=== PATIENT | male | born 1970 | race Hispanic/Latino ===

== ENCOUNTER 2025-01-30 10:34 | Emergency (ER) | payer SELFPAY ==
[~2025-01-30] VITALS: Ht 162.6 cm; Wt 99.8 kg
--- NOTE | 2025-01-30 10:38 | ERN ---
ED Note History of Present Illness Stated Complaint: LT EYE PAIN Chief Complaint: Eye Problems Time Seen by MD: 10:35 Dictation: PATIENT IS A 54-YEAR-OLD MALE COMING IN TODAY COMPLAINTS OF LEFT RED EYE WITH GREEN-YELLOW DRAINAGE IT ONSET WAS LAST NIGHT. HE DESCRIBES IT ITCHY. HE DOES NOT WEAR CONTACT LENSES OR GLASSES. PRIMARY CARE DOCTOR. Allergies: Coded Allergies: No Known Drug Allergies (Unverified Allergy, Unknown, 01/30/25) Past Medical History RN Note Reviewed/Agreed w/PFSH: Yes Review of System Dictation CONSTITUTIONAL: NEGATIVE EXCEPT FOR HPI HEAD/FACE: NEGATIVE EXCEPT FOR HPI EENT: NEGATIVE EXCEPT FOR HPI LEFT RED EYE WITH DRAINAGE RESPIRATORY: NEGATIVE EXCEPT FOR HPI GASTROINTESTINAL/ABDOMINAL: NEGATIVE EXCEPT FOR HPI GENITOURINARY: NEGATIVE EXCEPT FOR HPI MUSCULOSKELETAL: NEGATIVE EXCEPT FOR HPI INTEGUMENTARY: NEGATIVE EXCEPT FOR HPI NEUROLOGICAL/PSYCH: NEGATIVE EXCEPT FOR HPI HEMATOLOGIC/LYMPHATIC: NEGATIVE EXCEPT FOR HPI ALL SYSTEMS NEGATIVE, EXCEPT NOTED ABOVE. 13 POINT REVIEW OF SYSTEMS ASSESSED AND ALL NEGATIVE EXCEPT FOR ABOVE. Initial Vital Sign VS Vital Signs Date Time Temp Pulse Resp B/P (MAP) Pulse Ox O2 Delivery O2 Flow Rate FiO2 01/30/25 10:36 97.5 88 18 138/96 97 Room Air 0 Physical Exam Dictation VITAL SIGNS REVIEWED GENERAL APPEARANCE: ALERT, ORIENTED X 3, NO ACUTE DISTRESS, WELL DEVELOPED, NOURISHED. HEAD AND FACE: NON-TRAUMATIC. EYES: PERRL, RIGHT CONJUNCTIVA INJECTED, EYELID NO TRAUMA, ANTERIOR CHAMBER WITH ARCUS SENILIS. EARS: PINNAS INTACT AND NO SIGNS OF TRAUMA OR ERYTHEMA EAR CANALS CLEAR AND NO DISCHARGE TM NO ERYTHEMA NOSE: NO DISCHARGE, NO BLEEDING. OROPHARYNX: MOUTH NORMAL, TONGUE PINK, PHARYNX CLEAR,NO ERYTHEMA, TONSILS NO EXUDATES, NO ABSCESSES NOTED, MUCOUS MEMBRANE MOIST NECK: SUPPLE, NON-TENDER, NO THYROMEGALY, NO MASSES, NO JVD, NO BRUITS BREAST:DEFERRED CHEST:NO TENDERNESS, NO CREPITUS, NO PARADOXICAL MOVEMENT, NO RETRACTIONS LUNGS:CLEAR, WELL-VENTILATED, SYMMETRIC, NO RALES, NO WHEEZING, NO RHONCHI, NO STRIDOR, GOOD BREATH SOUNDS BILATERALLY HEART: REGULAR RATE, REGULAR RHYTHM, NO MURMUR, NO GALLOPS VASCULAR: NO PERIPHERAL EDEMA, ABDOMEN: SOFT, POSITIVE BOWEL SOUNDS, NONDISTENDED, NO GUARDING, NONTENDER, NO REBOUND, NO MASSES NO HEPATOMEGALY, NO SPLENOMEGALY, NO WESTON'S SIGN, NO HERNIAS. RECTAL: DEFERRED GENITAL: DEFERRED NEUROLOGICAL: NORMAL SPEECH, MOTOR FUNCTION INTACT, SENSORY FUNCTION INTACT MUSCULOSKELETAL: NECK NONTENDER, FULL RANGE OF MOTION, BACK NONTENDER, FULL RANGE OF MOTION, EXTREMITIES: NONTENDER, FULL RANGE OF MOTION SKIN: COLOR PINK, DRY, NO TURGOR, NO RASH, NO LACERATIONS, NO ABRASIONS, NO CONTUSIONS. LYMPHATIC: DEFERRED Results (Laboratory/Radiology) Labs Reviewed?: Yes ED Course ED Course Orders Procedure Category Date Status Time Visual Acuity Test CPOE 01/30/25 Transmitted (Er) 10:36 Tetracaine Hcl PHA 01/30/25 Complete (Pontocaine 0.5% 11:00 Fluorescein Sodium PHA 01/30/25 Complete (Cwqlt-P-Nujpf At) 11:00 Acetaminophen 500mg PHA 01/30/25 Complete Tab (Tylenol 500mg T 11:00 Current Medications Medications (Trade) Dose Ordered Sig/Alessandro Route PRN Reason Start Time Stop Time Status Last Admin Dose Admin Acetaminophen (TYLenol 500MG TAB) 1,000 mg ONCE ONCE PO 01/30/25 11:00 01/30/25 11:01 DC 01/30/25 10:51 Fluorescein Sodium (Bzuwt-A-Dyyuz At) 1 strip ONCE ONCE OP 01/30/25 11:00 01/30/25 11:01 DC 01/30/25 10:52 Tetracaine HCl (Pontocaine 0.5% Ophth Soln) 2 drop ONCE ONCE OP 01/30/25 11:00 01/30/25 11:01 DC 01/30/25 10:50 Vital Signs Date Time Temp Pulse Resp B/P (MAP) Pulse Ox O2 Delivery O2 Flow Rate FiO2 01/30/25 10:36 97.5 88 18 138/96 97 Room Air 0 1108/PATIENT WILL BE MAXITROL DROPS REFERRED TO [facility] AND HE IS AWARE HE MUST CALL FOR THE APPOINTMENT. ALL QUESTIONS ANSWERED Medical Decision Making MDM MEDICAL DECISION-MAKING BASED ON VISUAL ACUITY AND LEFT EYE EXAM WITH WOOD'S LAMP AND FLUORESCEIN STAINING LARGE SCLERAL ABRASION NOTED PATIENT WE WILL BE PRESCRIBED MAXITROL DROPS TO BE USED EVERY 4 HOURS WHILE AWAKE FOR THE NEXT SEVEN DAYS REFERRED TO [facility], HE IS AWARE HE MUST MAKE THE APPOINTMENT AND FOLLOW UP. Procedure Procedure Dictation: 1100/PROCEDURE EXPLAINED TO PATIENT HE AGREED TO PROCEED TWO DROPS TETRACAINE LEFT EYE FLUORESCEIN STAIN APPLIED LEFT EYE WAS EXAMINED WITH WOOD'S LAMP TO INCLUDE EVERSION OF UPPER LID PATIENT HAS A LARGE SCLERAL ABRASION AT THE 3 O'CLOCK POSITION CORNEA INTACT NO ABRASIONS NO LACERATIONS NO FOREIGN BODY FOUND. PATIENT TOLERATED DX & DISP Disposition: Discharge Departure Impression: Primary Impression: Abrasion of sclera of left eye Condition: Stable Scripts Ibuprofen (Ibuprofen 800 mg Tab) 800 Mg Tab 800 MG PO Q8H PRN for fever or pain, #30 TAB 0 Refills Prov: SANJIV JONES 01/30/25 Filemon/Polymyx B Sulf/Dexameth (Maxitrol Ophth Susp) 3.5 Mg/Ml-10,000 Unit/Ml-0.1 % Opsus 2 DROP OP AD for 5 Days, #5 ML 0 Refills APPLY TWO DROPS TO LEFT EYE EVERY 4 HOURS WHILE AWAKE FOR THE NEXT SEVEN DAYS. Prov: SANJIV JONES 01/30/25 Additional Instructions: FOLLOW-UP WITH PRIMARY CARE PROVIDER IN 1 TO 2 DAYS. TAKE MEDICATIONS DIRECTED HERE IN THE EMERGENCY ROOM. OKAY TO CONTINUE HOME MEDICATIONS UNLESS OTHERWISE DISCUSSED DURING YOUR VISIT IN THE EMERGENCY ROOM TODAY. RETURN TO YOUR NEAREST EMERGENCY ROOM IF SYMPTOMS WORSEN OR IF THERE IS NO IMPROVEMENT. CALL 911 IF YOU NEED IMMEDIATE ASSISTANCE. TAKE TYLENOL OR MOTRIN [id number] NEEDED AND IF NO CONTRAINDICATIONS ARE PRESENT. INCREASE ORAL HYDRATION. A WOUND CULTURE OR URINE CULTURE WAS ORDERED HERE IN THE EMERGENCY ROOM DEPARTMENT PLEASE FOLLOW-UP WITH PRIMARY CARE PROVIDER AND ADVISE THEM TO GET REPEAT PORTS FROM OUR FACILITY. IF YOU HAD ANY JULI WRAP/SPLINTS THAT WERE APPLIED HERE, PLEASE DO NOT REMOVE THEM UNTIL YOU SEE YOUR PRIMARY CARE OR SPECIALTY. USE MAXITROL EYEDROPS TO LEFT EYE DIRECTED FOR THE NEXT SEVEN DAYS. CALL [facility] [phone] AND MAKING APPOINTMENT TO FOLLOW UP TODAY. Referrals: SELF,REFERRAL (PCP) Time of Disposition: 11:11 I have reviewed the case, and I agree with, Diagnosis and Plan SANJIV JONES Jan 30, 2025 10:38
[2025-01-30] MEDS: TETRACAINE HCL 0.5% 4 ML OPHTH SOLN OP ONE (10:50)
[2025-01-30] MEDS: FLUORESCEIN SODIUM 1 STRIP STRIP OP ONE (10:52)
[2025-01-30] MEDS ORDERED: MAXIOS OP (11:12)
[2025-01-30] MEDS ORDERED: IBUP-2077 PO (11:12)
[2025-01-30 11:32] VITALS: BP 131/87; PULSE 80; RESP 18; TEMP 97.9; O2SAT 97
== END 2025-01-30 11:37 | disposition home or self-care (01) ==
LOC: EDH 10:34
DX: S05.02XA Injury of conjunctiva and corneal abrasion without foreign body, left eye, initial encounter (principal); X58.XXXA Exposure to other specified factors, initial encounter; Y93.89 Activity, other specified; Y92.89 Other specified places as the place of occurrence of the external cause; Y99.8 Other external cause status
CPT/HCPCS: 99283